=== PATIENT | male | born 1995 | race Caucasian/White ===

== ENCOUNTER 2018-07-12 13:14 | Inpatient (IN) | payer BC ==
[2018-07-12] MEDS ORDERED: SODIUM CHLORIDE 1,000 ML IV STA (13:45)
--- NOTE | 2018-07-12 14:00 | PDOC ---
History of Present Illness - General Chief Complaint: Nausea/Vomiting Stated Complaint: ABDOMINAL PAIN, N/V Time Seen by Provider: 07/12/18 13:31 History Source: Patient Exam Limitations: No Limitations - History of Present Illness Initial Comments: 07/12/18 13:56 CHIEF COMPLAINT: Abdominal pain HISTORY OF PRESENT ILLNESS: Healthy 23-year-old man awoke yesterday with diffuse abdominal discomfort radiating to the mid back. He had 3 episodes of diarrhea without blood. He also had one episode of vomiting. The pain persisted and today he went to the urgent care center for evaluation. He is now complaining of diffuse abdominal pain, but there is more pain in the right lower quadrant. He was able to eat today, but his appetite is reduced from normal. There has been no further vomiting or diarrhea today. He denies fever or chills. He denies dysuria. REVIEW OF SYSTEMS: No fever or chills Positive abdominal pain Positive diarrhea Positive vomiting No dysuria or frequency Past History - Past Medical History Allergies/Adverse Reactions: Allergies Allergy/AdvReac Type Severity Reaction Status Date / Time No Known Allergies Allergy Verified 07/12/18 13:21 Home Medications: Ambulatory Orders NK [No Known Home Medication] 07/12/18 COPD: No - Immunization History Immunization Up to Date: Yes - Suicide/Smoking/Psychosocial Hx Smoking History: Never smoked Hx Alcohol Use: Yes (2-3 PER WEEK) Drug/Substance Use Hx: Yes (RARE COCAINE USE) Review of Systems - Review of Systems Able to Perform ROS?: Yes Comments:: 07/12/18 13:58 GENERAL/CONSTITUTIONAL: No fever or chills. No weakness. No weight change. HEAD, EYES, EARS, NOSE AND THROAT: No change in vision. No ear pain or discharge. No sore throat. CARDIOVASCULAR: No chest pain or shortness of breath. RESPIRATORY: No cough, wheezing, or hemoptysis. GASTROINTESTINAL: Positive nausea and vomiting, positive diarrhea, no rectal bleeding. GENITOURINARY: No dysuria, frequency, or change in urination. MUSCULOSKELETAL: No joint or muscle swelling or pain. No neck or back pain. SKIN AND BREASTS: No rash or easy bruising. NEUROLOGIC: No headache, vertigo, loss of consciousness, or loss of sensation. PSYCHIATRIC: No depression or anxiety. ENDOCRINE: No increased thirst. No abnormal weight change. HEMATOLOGIC/LYMPHATIC: No anemia, easy bleeding, or history of blood clots. ALLERGIC/IMMUNOLOGIC: No hives or skin allergy. No latex allergy. *Physical Exam - Vital Signs Last Vital Signs Temp Pulse Resp BP Pulse Ox 98.7 F 94 H 16 117/60 99 07/12/18 13:16 07/12/18 13:16 07/12/18 13:16 07/12/18 13:16 07/12/18 13:16 - Physical Exam Comments: 07/12/18 13:59 GENERAL: The patient is awake, alert, and fully oriented, in no acute distress. He appears comfortable. HEAD: Normal with no signs of trauma. EYES: Pupils equal, round and reactive to light, extraocular movements intact, sclera anicteric, conjunctiva clear. ENT: Ears normal, nares patent, oropharynx clear without exudates. Moist mucous membranes. NECK: Normal range of motion, supple without lymphadenopathy, JVD, or masses. LUNGS: Breath sounds equal, clear to auscultation bilaterally. No wheezes, and no crackles. HEART: Regular rate and rhythm, normal S1 and S2 without murmur, rub or gallop. ABDOMEN: The abdomen is soft with mild diffuse tenderness, increased tenderness in the right lower quadrant. There is no guarding or rebound tenderness. There is no flank tenderness. There is no CVA tenderness posteriorly. EXTREMITIES: Normal range of motion, no edema. No clubbing or cyanosis. No cords, erythema, or tenderness. NEUROLOGICAL: Cranial nerves II through XII grossly intact. Normal speech, normal gait. PSYCH: Normal mood, normal affect. SKIN: Warm, Dry, normal turgor, no rashes or lesions noted. ED Treatment Course - LABORATORY CBC & Chemistry Diagram: 07/12/18 14:00 07/12/18 14:00 - RADIOLOGY Radiology Studies Ordered: Category Date Time Status ABDOMEN & PELVIS CT WITH CONTR [CT] Stat CT Scan 07/12/18 13:45 Ordered Medical Decision Making - Medical Decision Making 07/12/18 16:03 23-year-old man with no significant past medical history presents with onset yesterday of diffuse abdominal pain radiating to the back. He had a couple of episodes of diarrhea and one episode of vomiting. The pain persists today, still diffuse, but more in the right lower quadrant. On examination, there is mild diffuse tenderness but increased focal tenderness in the right lower quadrant. The differential diagnosis includes gastroenteritis and acute appendicitis. CT scan of the abdomen and pelvis will be performed to rule out appendicitis. Laboratory studies reviewed: White blood cell count is normal. Other studies are normal. Urinalysis negative. Chemistries normal. CT scan of the abdomen and pelvis shows findings of enlargement of the appendix to 11 mm in diameter with thickening and enhancement of the wall and stranding of the periappendiceal fat. These findings are consistent with acute appendicitis. Impression: Acute appendicitis Plan: IV Zosyn 1 dose Surgical consult [facility] Laboratory Results - last 24 hr 07/12/18 07/12/18 07/12/18 13:50 14:00 14:00 WBC 8.8 RBC 4.87 Hgb 14.7 Hct 43.3 MCV 88.8 MCH 30.2 MCHC 34.0 RDW 13.1 Plt Count 226 MPV 7.6 Absolute Neuts (auto) 6.7 Neutrophils % 76.0 Lymphocytes % 15.0 Monocytes % 7.8 Eosinophils % 0.9 Basophils % 0.3 Nucleated RBC % 0 Sodium 139 Potassium 3.9 Chloride 104 Carbon Dioxide 25 Anion Gap 10 BUN 10 Creatinine 0.8 Est GFR (CKD-EPI)AfAm 145.93 Est GFR (CKD-EPI)NonAf 125.91 Random Glucose 108 H Calcium 9.1 Total Bilirubin 0.9 AST 18 ALT 36 Alkaline Phosphatase 56 Total Protein 7.5 Albumin 4.2 Urine Color Payton Urine Appearance Clear Urine pH 7.0 Urine Protein Negative Urine Glucose (UA) Negative Urine Ketones Negative Urine Blood Negative Urine Nitrite Negative Urine Bilirubin Negative Urine Urobilinogen 0.2 Ur Leukocyte Esterase Negative 07/12/18 16:12 I spoke to the surgeon Dr. Brizuela. He will take the patient to the OR. He requested admission to the hospitalist service. *DC/Admit/Observation/Transfer Diagnosis at time of Disposition: Appendicitis Qualifiers: Appendicitis type: acute appendicitis Acute appendicitis type: with localized peritonitis Appendicitis gangrene presence: without gangrene Appendicitis perforation presence: without perforation Appendicitis abscess presence: without abscess Qualified Code(s): K35.30 - Acute appendicitis with localized peritonitis, without perforation or gangrene - Discharge Dispostion Condition at time of disposition: Stable Decision to Admit order: Yes Decision to Admit order Date/Time: 07/12/18 16:[address] Brizuela surgery, [facility]. spoke with DEB Chavis, will be admitted to hospitalist service Dr. Guadarrama. ambulance BLS [facility] OR - Referrals - Patient Instructions - Post Discharge Activity
[2018-07-12 14:28] LABS: ALBUMIN 4.2 g/dl (3.4-5.0); BILIRUBIN,TOTAL 0.9 mg/dl (0.2-1); CALCIUM 9.1 mg/dl (8.5-10); CREATININE 0.8 mg/dl (0.55-1.3); POTASSIUM 3.9 mmol/L (3.5-5.1); TOT PROT 7.5 g/dl (6.4-8.2)
[2018-07-12 14:54] LABS: BASO % 0.3 % (0-2.0); EOS % 0.9 % (0-4.5); HEMATOCRIT 43.3 % (35.4-49); HEMOGLOBIN 14.7 GM/dL (11.7-16.9); MCH 30.2 pg (25.7-33.7); MEAN CELL VOLUME 88.8 fl (80-96); MEAN PLT VOLUME 7.6 fl (7.5-11.1); MONO % 7.8 % (3.8-10.2); PLATELET COUNT 226 K/MM3 (134-434); RBC 4.87 M/mm3 (4.00-5.60); RDW 13.1 % (11.9-15.9); WHITE BLOOD COUNT 8.8 K/mm3 (4.0-10.0)
[2018-07-12] MEDS ORDERED: PIPERACILLIN/TAZOB 4.5 GM 4.5 GM in DEXTROSE 5%-WATER 100 ML IVPB ONE (16:02)
[2018-07-12] MEDS ORDERED: PIPERACILLIN/TAZOBACTAM 4.5 GM VIAL IVPB ONE (16:04)
--- NOTE | 2018-07-12 17:17 | HP ---
CHIEF COMPLAINT: Abdominal pain HISTORY OF PRESENT ILLNESS: 23 year-old male with no significant past medical history presented to the ED with complaint of headache, back pain, abdominal pain, vomiting, and diarrhea since yesterday morning. He awoke yesterday morning with diffuse abdominal discomfort radiating to the back. He had three episodes of diarrhea and one episode of vomiting. He felt hot and cold and slept most of the day. Today the abdominal pain is more localized to the RLQ. ER course was notable for: (1) CTAP: acute appendicitis (2) Zosyn x 1; NS x 1L Recent Travel: [place] December 2017 PAST MEDICAL HISTORY: None reported PAST SURGICAL HISTORY: None reported Social History: works as a waiter/waitress formal, lives in [place] with girlfriend Smoking: no Alcohol: no Drugs: occasional cocaine, last use several months ago Family History: Allergies No Known Allergies Allergy (Verified 07/12/18 13:21) HOME MEDICATIONS: Home Medications Medication Instructions Recorded NK [No Known Home Medication] 07/12/18 REVIEW OF SYSTEMS CONSTITUTIONAL: +hot and cold, fatigue Absent: diaphoresis, generalized weakness, malaise, loss of appetite, weight change HEENT: Absent: rhinorrhea, nasal congestion, throat pain, throat swelling, difficulty swallowing, mouth swelling, ear pain, eye pain, visual changes CARDIOVASCULAR: Absent: chest pain, syncope, palpitations, irregular heart rate, lightheadedness , peripheral edema RESPIRATORY: Absent: cough, shortness of breath, dyspnea with exertion, orthopnea, wheezing, stridor, hemoptysis GASTROINTESTINAL: +abdominal pain, first diffuse, then RLQ Absent: abdominal pain, abdominal distension, nausea, vomiting, diarrhea, constipation, melena, hematochezia GENITOURINARY: +vomiting, diarrhea Absent: dysuria, frequency, urgency, hesitancy, hematuria, flank pain, genital pain MUSCULOSKELETAL: Absent: myalgia, arthralgia, joint swelling, back pain, neck pain SKIN: Absent: rash, itching, pallor HEMATOLOGIC/IMMUNOLOGIC: Absent: easy bleeding, easy bruising, lymphadenopathy, frequent infections ENDOCRINE: Absent: unexplained weight gain, unexplained weight loss, heat intolerance, cold intolerance NEUROLOGIC: Absent: headache, focal weakness or paresthesias, dizziness, unsteady gait, seizure, mental status changes, bladder or bowel incontinence PSYCHIATRIC: Absent: anxiety, depression, suicidal or homicidal ideation, hallucinations. PHYSICAL EXAMINATION Vital Signs - 24 hr 07/12/18 13:16 Temperature 98.7 F Pulse Rate 94 H Respiratory 16 Rate Blood Pressure 117/60 O2 Sat by Pulse 99 Oximetry (%) GENERAL: Awake, alert, and fully oriented, in no acute distress. HEAD: Normal with no signs of trauma. EYES: Pupils equal, round and reactive to light, extraocular movements intact, sclera anicteric, conjunctiva clear. No lid lag. EARS, NOSE, THROAT: Ears normal, nares patent, oropharynx clear without exudates. Moist mucous membranes. NECK: Normal range of motion, supple without lymphadenopathy, JVD, or masses. LUNGS: Breath sounds equal, clear to auscultation bilaterally. No wheezes, and no crackles. No accessory muscle use. HEART: Regular rate and rhythm, normal S1 and S2 without murmur, rub or gallop. ABDOMEN: Soft, RMQ and RLQ tenderness, no rebound, no guarding; no CVA tenderness posteriorly UPPER EXTREMITIES: 2+ pulses, warm, well-perfused. No cyanosis. No clubbing. No peripheral edema. LOWER EXTREMITIES: 2+ pulses, warm, well-perfused. No calf tenderness. No peripheral edema. NEUROLOGICAL: Cranial nerves II-XII intact. Normal speech. Normal gait. Laboratory Results - last 24 hr 07/12/18 07/12/18 07/12/18 13:50 14:00 14:00 WBC 8.8 RBC 4.87 Hgb 14.7 Hct 43.3 MCV 88.8 MCH 30.2 MCHC 34.0 RDW 13.1 Plt Count 226 MPV 7.6 Absolute Neuts (auto) 6.7 Neutrophils % 76.0 Lymphocytes % 15.0 Monocytes % 7.8 Eosinophils % 0.9 Basophils % 0.3 Nucleated RBC % 0 Sodium 139 Potassium 3.9 Chloride 104 Carbon Dioxide 25 Anion Gap 10 BUN 10 Creatinine 0.8 Est GFR (CKD-EPI)AfAm 145.93 Est GFR (CKD-EPI)NonAf 125.91 Random Glucose 108 H Calcium 9.1 Total Bilirubin 0.9 AST 18 ALT 36 Alkaline Phosphatase 56 Total Protein 7.5 Albumin 4.2 Urine Color Payton Urine Appearance Clear Urine pH 7.0 Urine Protein Negative Urine Glucose (UA) Negative Urine Ketones Negative Urine Blood Negative Urine Nitrite Negative Urine Bilirubin Negative Urine Urobilinogen 0.2 Ur Leukocyte Esterase Negative ASSESSMENT/PLAN 23 year-old male with no significant PMH admitted for 23 hours for acute appendicitis. Acute appendicitis --no fever, no leukocytosis --IV fluids --Zosyn x 1 dose in ED --to OR this evening --NPO; last ate at 1:30pm today, a handful of pretzels. Dispo: transfer to [facility] for surgery. Full code. Visit type - Emergency Visit Emergency Visit: Yes Care time: The patient presented to the Emergency Department on the above date and was hospitalized for further evaluation of their emergent condition. - New Patient This patient is new to me today: Yes Date on this admission: 07/12/18 - Critical Care Critical Care patient: No
[2018-07-12] MEDS ORDERED: LACTATED RINGERS SOLUTION 1,000 ML/1,000 ML INFUS.BAG IV SCH (17:30)
[2018-07-12] MEDS ORDERED: ACETAMINOPHEN 1000 MG/100 ML VIAL (NON FORMULARY) IVPB SCH (18:00)
[2018-07-12] MEDS ORDERED: ONDANSETRON 4 MG/2 ML VIAL IVPUSH PRN ×4 (18:01→19:13)
--- NOTE | 2018-07-12 18:04 | PN ---
Progress Note (short form) - Note Progress Note: surgery pt seen and examined. full consult dictated. 23m with rlq pain and ct showing acute uncomplicated appendicitis. afebrile abd-soft, rlq tenderness plan- clinically acute appendicitis. agree with marilin. for surgery.
--- NOTE | 2018-07-12 18:05 | OP ---
Operative Note - Note: Operative Date: 07/12/18 Pre-Operative Diagnosis: acute appendicitis Operation: laparoscopic appendectomy, lavage Findings: thickened, inflamed, appendix.. non perforated Post-Operative Diagnosis: Same as Pre-op Surgeon: Hector Brizuela Anesthesiologist/ENGINE DISPATCHER: José Manuel Abdi Anesthesia: General Specimens Removed: appendix Estimated Blood Loss (mls): 5
[2018-07-12] MEDS ORDERED: MIDAZOLAM HCL 2 MG/2 ML SINGLE DOSE VIAL ONE (18:08)
[2018-07-12] MEDS ORDERED: PROPOFOL 20 ML ONE ×2 (18:10→18:37)
[2018-07-12] MEDS ORDERED: LIDOCAINE HCL/PF 2% SDV 5ML VIAL ONE (18:10)
[2018-07-12] MEDS ORDERED: KETOROLAC TROMETHAMINE 30 MG/1 ML VIAL ONE (18:10)
[2018-07-12] MEDS ORDERED: DEXAMETHASONE SOD PHOSPHATE 4 MG/1 ML VIAL ONE (18:11)
[2018-07-12] MEDS ORDERED: SUCCINYLCHOLINE CHLORIDE 200 MG/10 ML VIAL ONE (18:11)
[2018-07-12] MEDS ORDERED: ROCURONIUM BROMIDE 50 MG/5 ML VIAL ONE (18:11)
[2018-07-12] MEDS ORDERED: NEOSTIGMINE METHYLSULFATE 0.5 MG/1 ML - 10 ML MDV ONE (18:11)
[2018-07-12] MEDS ORDERED: GLYCOPYRROLATE 0.2 MG/1 ML VIAL ONE (18:11)
[2018-07-12] MEDS ORDERED: ONDANSETRON 4 MG/2 ML VIAL ONE (18:11)
[2018-07-12] MEDS ORDERED: LACTATED RINGERS SOLUTION 1,000 ML IV SCH (18:15)
[2018-07-12] MEDS ORDERED: oxyCODONE HCL 5 MG TABLET PO PRN ×2 (18:34→19:13)
[2018-07-12] MEDS ORDERED: morphine SULFATE 4 MG/ML VIAL IVPB PRN ×2 (18:34→19:13)
[2018-07-12] MEDS ORDERED: ACETAMINOPHEN 325 MG TABLET (FP) PO PRN ×2 (18:34→19:13)
[2018-07-12] MEDS ORDERED: IBUPROFEN 800 MG/8 ML IJ IVPB PRN ×2 (18:36→19:13)
[2018-07-12] MEDS ORDERED: D5-1/2NS+20 MEQ KCL - 20 MEQ/1,000 ML INFUS.BAG IV SCH ×2 (18:45→19:13)
[2018-07-12] MEDS ORDERED: ACETAMINOPHEN 1000 MG/100 ML VIAL (NON FORMULARY) IVPB ONE (19:24)
[2018-07-12] MEDS ORDERED: ACETAMINOPHEN INJECTION 100 ML IVPB ONE (19:36)
[2018-07-12] MEDS ORDERED: DEXTROSE 5%-WATER - 50 ML IVPB ONE (20:03)
[2018-07-12] MEDS ORDERED: PIPERACILLIN/TAZOBACTAM 3.375 GM VIAL IVPB ONE (20:03)
[2018-07-12] MEDS: PIPERACILLIN/TAZOB 3.375 GM 3.375 GM in DEXTROSE 5%-WATER - 50 ML IVPB SCH (20:39)
[2018-07-12] MEDS ORDERED: PIPERACILLIN/TAZOB 3.375 GM 3.375 GM in DEXTROSE 5%-WATER - 50 ML IVPB SCH ×3 (21:00)
[2018-07-12 22:57] VITALS: BMI 29.2
[2018-07-13] MEDS ORDERED: PIPERACILLIN/TAZOBACTAM 3.375 GM VIAL IVPB ONE ×2 (01:29→09:31)
[2018-07-13] MEDS ORDERED: DEXTROSE 5%-WATER - 50 ML IVPB ONE ×2 (01:30→09:31)
[2018-07-13] MEDS: ACETAMINOPHEN 1000 MG/100 ML VIAL (NON FORMULARY) IVPB SCH ×2 (01:49→06:57)
[2018-07-13] MEDS: PIPERACILLIN/TAZOB 3.375 GM 3.375 GM in DEXTROSE 5%-WATER - 50 ML IVPB SCH ×2 (02:21→09:33)
--- NOTE | 2018-07-13 08:06 | PN ---
Progress Note (short form) - Note Progress Note: surgery s/p appendectomy. afebrile. tolerating diet. ambulating and voiding. surgically stable for d/c. no abx. no narcotics. no lifting. regular diet. ok to shower. most take 2 weeks off work. f/u in 2 weeks. [phone]
[2018-07-13 08:21] LABS: HEMATOCRIT 43.3 % (35.4-49); HEMOGLOBIN 14.4 GM/dL (11.7-16.9); MCH 29.8 pg (25.7-33.7); MCHC 33.3 g/dl (32.0-35.9); MEAN CELL VOLUME 89.5 fl (80-96); MEAN PLT VOLUME 7.9 fl (7.5-11.1); PLATELET COUNT 227 K/MM3 (134-434); RBC 4.84 M/mm3 (4.00-5.60); WHITE BLOOD COUNT 8.5 K/mm3 (4.0-10.0)
--- NOTE | 2018-07-13 08:48 | OP ---
DATE OF OPERATION: 07/12/2018 PREOPERATIVE DIAGNOSIS: Acute appendicitis. POSTOPERATIVE DIAGNOSIS: Acute appendicitis. PROCEDURE: Laparoscopic appendectomy, lavage. SURGEON: Hector Brizuela DO WALL TAPER: None. ANESTHESIOLOGIST: José Manuel Abdi MD SPECIMEN: Appendix. FINDINGS: A thickened, inflamed nonperforated appendix. BLOOD LOSS: Minimal. COMPLICATIONS: None. DISPOSITION: To recovery room in stable condition. BRIEF HISTORY: This is a 23-year-old male, presented to [facility] with acute appendicitis, then transferred to [facility] for surgery, presents now for surgery. He is on Zosyn antibiotic. PROCEDURE: The patient was placed in the supine position. General anesthesia was initiated. The abdomen was prepped and draped in sterile fashion. A Yoon catheter was inserted. Next, a vertical incision was made infraumbilical with scalpel used to go through skin and subcutaneous tissue. The fascia was then lifted with a Doris clamp and incised vertically. The peritoneum was then entered bluntly. Next, a 0 Vicryl stitch was placed across the fascial defect and used to secure the Laurel trocar. Pneumoperitoneum was then created followed by insertion of a 5-mm 30- degree laparoscope. Next, an additional 5-mm trocar was placed suprapubic as well as in the left lower quadrant. Attention was then turned to the right lower quadrant. The appendix was seen. It was thick and inflamed, nonperforated. A window was made at its base. The LigaSure device was used to divide the mesoappendix with multiple welts. The Endo SEJAL purple load 45-mm stapler was then used to divide the appendix at its base in 1 firing. The staple line was inspected. It was intact. There was no bleeding, no breaks, no sign of ischemia. The appendix was placed in a specimen bag, removed through the infraumbilical trocar site and sent to pathology marked as specimen. A limited lavage was done. All return was clear. Trocars were then removed under direct visualization as the pneumoperitoneum was released. The fascia at the infraumbilical trocar site was then closed with multiple interrupted 0 Vicryl sutures. The 3 skin incisions were closed with Biosyn and Dermabond dressing was placed. Overall the patient tolerated the procedure well. There were no complications. There were no drains. The operation terminated. DO MEHREEN URIOSTEGUI/[id number] MTDD
--- NOTE | 2018-07-13 09:04 | CONS ---
DATE OF CONSULTATION: 07/12/2018 REASON FOR CONSULTATION: Acute appendicitis. This is an emergency room consultation. It goes to the emergency room physician. BRIEF HISTORY: This is a 23-year-old male without significant past medical history who presents with a 1 day history of right lower quadrant pain, nausea and vomiting. He had a CAT scan of his abdomen and pelvis which was consistent with acute appendicitis. He was admitted to the hospital, transferred to [facility] from [facility] and request was made for surgical evaluation. PAST MEDICAL HISTORY: Negative. PAST SURGICAL HISTORY: Nil. SOCIAL HISTORY: Positive for occasional alcohol consumption. Negative for tobacco. FAMILY HISTORY: Negative for malignancy in the immediate family. MEDICATIONS: He takes no medications. REVIEW OF SYSTEMS: General: Denies fatigue or malaise. Cardiac: Denies chest pain or palpitations. Respiratory: Denies shortness of breath or wheeze. Gastrointestinal: As in HPI. Denies diarrhea. Denies blood in his stool. Denies recent weight loss. He currently is hungry. He has not vomited since yesterday. Genitourinary: Denies dysuria. Musculoskeletal: Denies joint pain. Psychiatric: Denies depression, anxiety or hearing voices. PHYSICAL EXAMINATION: General: He is a well-developed, well-nourished 23-year-old male in no distress. Vital Signs: He is afebrile. His vital signs are stable. HEENT: His head is normocephalic. His sclerae are anicteric. Neck: Supple. Chest: Clear. Abdomen: Soft. He has localized right lower quadrant tenderness with rebound. He has no surgical scars. He has no obvious hernias. Extremities: No edema. REVIEW OF HIS LABORATORIES: White blood cell count is normal at 8.8. There is no shift. His chemistries are unremarkable. REVIEW OF HIS IMAGING: He has a CAT scan of his abdomen and pelvis which is consistent with acute appendicitis without complication. ASSESSMENT: This is a 23-year-old male with right lower quadrant pain, right lower quadrant tenderness, rebound, nausea, vomiting and CAT scan evidence of acute appendicitis. Clinically this is acute appendicitis. I agree with admission. I agree with Lolan antibiotic. Will make plans for surgery. Risks and benefits of surgery have been explained to the patient as well as his mother and girlfriend in detail. These are including but not limited to the possibility of conversion to open, the possibility of injury to viscera or bladder, the possibility of blood loss requiring blood transfusion, possibility of infection, possibility of staple line dehiscence, possibility of requiring a right colectomy, possibility of future obstruction, possible future hernia plus a multitude of medical risks including but not limited to cardiac, neurologic, pulmonary and vascular complications, even . The patient understands these risks and is agreeable to surgery. He has also been offered medical management of appendicitis and declines. He prefers the more definitive nature of surgery, the likely decreased length of stay, the ability to pathologically evaluate the appendix and decrease of recurrence. DO MEHREEN URIOSTEGUI/[id number]
[2018-07-13] MEDS ORDERED: ENOXAPARIN NA (PORCINE) 40 MG/0.4 ML DISP.SYRIN SQ SCH ×2 (10:00)
[2018-07-13] MEDS ORDERED: PANTOPRAZOLE SODIUM 40 MG VIAL IVPUSH SCH ×2 (10:00)
--- NOTE | 2018-07-13 10:59 | PN ---
Progress Note (short form) - Note Progress Note: Anesthesiology Post-op POD#1 s/p laparoscopic appendectomy under GA. Pt. doing well. Pain under control with meds. VSS. No anesthesia-related issues. 23 y.o. man with stable post-operative course. Continue management per primary team.
--- NOTE | 2018-07-13 11:46 | DS ---
Physical Exam: SUBJECTIVE: Patient seen and examined at the bedside. Feels well, in no acute distress, states his abdomen is just sore. Denies nausea/denies pain. wants to go home. OBJECTIVE: Vital Signs Period Temp Pulse Resp BP Sys/Velazquez Pulse Ox Last 24 Hr 97.6 F-98.7 F 50-94 14-20 112-126/48-74 98-100 PHYSICAL EXAM GENERAL: The patient is awake, alert, and fully oriented, in no acute distress. HEAD: Normal with no signs of trauma. EYES: PERRL, extraocular movements intact, sclera anicteric, conjunctiva clear. ENT: Ears normal, nares patent, oropharynx clear without exudates, moist mucous membranes. NECK: Trachea midline, full range of motion, supple. LUNGS: Breath sounds equal, clear to auscultation bilaterally, HEART: Regular rate and rhythm, S1, S2 without murmur, rub or gallop. ABDOMEN: Soft, nontender, nondistended, normoactive bowel sounds, s/p lap appendectomy. surgical sites clean and dry PSYCH: Normal mood, normal affect. LABS Laboratory Results - last 24 hr 07/12/18 07/12/18 07/12/18 08:40 13:50 14:00 WBC 8.8 RBC 4.87 Hgb 14.7 Hct 43.3 MCV 88.8 MCH 30.2 MCHC 34.0 RDW 13.1 Plt Count 226 MPV 7.6 Absolute Neuts (auto) 6.7 Neutrophils % 76.0 Lymphocytes % 15.0 Monocytes % 7.8 Eosinophils % 0.9 Basophils % 0.3 Nucleated RBC % 0 Sodium Potassium Chloride Carbon Dioxide Anion Gap BUN Creatinine Est GFR (CKD-EPI)AfAm Est GFR (CKD-EPI)NonAf Random Glucose Calcium Total Bilirubin AST ALT Alkaline Phosphatase Total Protein Albumin Urine Color Payton Urine Appearance Clear Urine pH 7.0 Urine Protein Negative Urine Glucose (UA) Negative Urine Ketones Negative Urine Blood Negative Urine Nitrite Negative Urine Bilirubin Negative Urine Urobilinogen 0.2 Ur Leukocyte Esterase Negative Blood Type Cancelled Antibody Screen 07/12/18 07/12/18 07/13/18 14:00 21:12 06:00 WBC 8.5 RBC 4.84 Hgb 14.4 Hct 43.3 MCV 89.5 MCH 29.8 MCHC 33.3 RDW 13.0 Plt Count 227 MPV 7.9 Absolute Neuts (auto) Neutrophils % Lymphocytes % Monocytes % Eosinophils % Basophils % Nucleated RBC % Sodium 139 Potassium 3.9 Chloride 104 Carbon Dioxide 25 Anion Gap 10 BUN 10 Creatinine 0.8 Est GFR (CKD-EPI)AfAm 145.93 Est GFR (CKD-EPI)NonAf 125.91 Random Glucose 108 H Calcium 9.1 Total Bilirubin 0.9 AST 18 ALT 36 Alkaline Phosphatase 56 Total Protein 7.5 Albumin 4.2 Urine Color Urine Appearance Urine pH Urine Protein Urine Glucose (UA) Urine Ketones Urine Blood Urine Nitrite Urine Bilirubin Urine Urobilinogen Ur Leukocyte Esterase Blood Type A NEGATIVE Antibody Screen Negative 07/13/18 08:30 WBC RBC Hgb Hct MCV MCH MCHC RDW Plt Count MPV Absolute Neuts (auto) Neutrophils % Lymphocytes % Monocytes % Eosinophils % Basophils % Nucleated RBC % Sodium Potassium Chloride Carbon Dioxide Anion Gap BUN Creatinine Est GFR (CKD-EPI)AfAm Est GFR (CKD-EPI)NonAf Random Glucose Calcium Total Bilirubin AST ALT Alkaline Phosphatase Total Protein Albumin Urine Color Urine Appearance Urine pH Urine Protein Urine Glucose (UA) Urine Ketones Urine Blood Urine Nitrite Urine Bilirubin Urine Urobilinogen Ur Leukocyte Esterase Blood Type A NEGATIVE Antibody Screen HOSPITAL COURSE: Date of Admission:07/12/18 Date of Discharge: 07/13/18 HOSPITAL COURSE BY PROBLEM LIST. Patient is a 23 year-old male with no significant PMH admitted for 23 hours for acute appendicitis. He is s/p appendectomy. Stable post op, no fevers, vitals stable and tolerating diet. For discharge home with Surgery follow up as an outpatient. Minutes to complete discharge: 60 Discharge Summary Reason For Visit: ABDOMINAL PAIN, N/V Current Active Problems Appendicitis (Acute) Condition: Stable - Instructions Diet, Activity, Other Instructions: Mr Novoato: You were admitted on 07/12/2018 and found to have acute appendicitis and had an appendectomy (removal of your appendix on 07/12/2018) with Dr. Brizuela. What is acute appendicitis? It is a condition which your appendix becomes inflamed and filled with pus causing pain. The treatment is removal of your appendix. We have given you antibiotics before and after surgery and you no longer need any further antibiotics. What are the next steps after surgery? You are cleared to go home with the following instructions: -Do not take narcotics -No Lifting -Continue a regular diet -You may shower =You must take at least 2 weeks off from work (a note is made part of your discharge instructions) -Call Dr. Brizuela office and call for an appointment to follow up in 2 weeks @ [phone]. Thank you for allowing us to care for you. Marian Inman NP [facility] Referrals: Hector Brizuela MD [Staff Physician] - Disposition: HOME - Home Medications Comprehensive Discharge Medication List: Ambulatory Orders NK [No Known Home Medication] 07/12/18 This patient is new to me today: Yes Date on this admission: 07/13/18 Emergency Visit: Yes ED Registration Date: 07/12/18 Care time: The patient presented to the Emergency Department on the above date and was hospitalized for further evaluation of their emergent condition. Critical Care patient: No - Discharge Referral Referred to [facility] No
[2018-07-13 13:18] VITALS: BP 112/64; PULSE 83; TEMP 98.2
--- NOTE | 2018-07-15 17:06 | PATH ---
Surgical Pathology Report Patient Name: SUSAN PARRY Med. Rec. #: [id number] /Age/Gender: 1995 (Age: 23) / M Account: [id number] Location: [facility] Taken: 07/12/2018 Received: 07/14/2018 Reported: 07/15/2018 Physicians: Russ Pope M.D. Specimen(s) Received APPENDIX Clinical History Acute appendicitis Final Diagnosis APPENDIX, APPENDECTOMY: ACUTE APPENDICITIS AND PERIAPPENDICITIS. Electronically Signed Jing Reilly M.D. Gross Description Received in formalin, labeled "appendix," is a 7 cm. in length vermiform appendix with a stapled margin of resection and moderate attached fat. The serosa is hdz-pike with attached exudate. Sectioning reveals focal inflammation within the lumen. The wall of the appendix averages 0.1 cm. in thickness. Senior Water Resources Engineer sections are submitted in one cassette. /07/14/2018 [facility]07/14/2018
== END 2018-07-13 12:57 | disposition home or self-care (01) | DRG 343 ==
LOC: FER 13:14 → JERBED 14:00 → J8W 18:33
PROVIDERS: ADMIT Internal Medicine; ATTEND Nurse Practitioner Family
PROC: 0DTJ4ZZ Resection of Appendix, Percutaneous Endoscopic Approach (ICD-10-PCS; principal; 2018-07-12 18:54)
DX: K35.890 Other acute appendicitis without perforation or gangrene (principal)
CPT/HCPCS: 36415; 74177-TC; 80053; 81003; 85025; 85027; 86850; 86900; 86901; 88304-TC; 94760; 99285-25; J0131; J7030